=== PATIENT | female | born 1995 | race Two or more races ===

== ENCOUNTER 2020-05-05 18:33 | Emergency (ER) | payer MEDICAID ==
[~2020-05-05] VITALS: Ht 149.9 cm; Wt 68.9 kg
--- NOTE | 2020-05-05 18:49 | NUR ---
ED Nurse Note: Pt walked into ED for feeling of dehydration for 1 week. Pt thinks she has dry mouth and has c/o fever but current temp of 98.2F oral. Pt is alert and orientedx4, ambulatory. Pt has been seen by BRYAN.
[2020-05-05 18:53] VITALS: BP 138/87
--- NOTE | 2020-05-05 19:00 | Emergency Room Report ---
History of Present Illness General Chief Complaint: General Complaint Source: Patient Present Illness HPI Patient is a 24-year-old female who presents after increased generalized feeling of being more thirsty. Reports having prior history of type 2 diabetes for which he takes insulin. Denies any vomiting or diarrhea. Reports having decreased urine output. States that she had previously had no other abnormal test. Denies any abdominal pain. Reports having previously been followed by [facility]. 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 Patient History Past Medical History: see triage record, DM Last Menstrual Period: 04/14/20 Now: No Reviewed Nursing Documentation: PMH: Agreed; PSxH: Agreed Nursing Documentation-PMH Hx Diabetes: Yes Review of Systems All Other Systems: negative except mentioned in HPI Physical Exam Vital Signs Date Time Temp Pulse Resp B/P (MAP) Pulse Ox O2 Delivery O2 Flow Rate FiO2 05/05/20 18:43 98.2 118 17 143/90 (107) 97 Room Air 05/05/20 18:53 99 Sp02 EP Interpretation: reviewed, normal General Appearance: normal inspection, well appearing, no apparent distress, alert, GCS 15 Head: atraumatic ENT: normal ENT inspection, hearing grossly normal, normal voice Neck: normal inspection, full range of motion, supple, no bony tend Respiratory: normal inspection, lungs clear, normal breath sounds, no respiratory distress, no retraction, no wheezing Cardiovascular #1: regular rate, rhythm, no edema Gastrointestinal: normal inspection, normal bowel sounds, non tender, soft, no guarding, no hernia Genitourinary: no CVA tenderness Musculoskeletal: normal inspection, back normal, normal range of motion Neurologic: alert, motor strength/tone normal, locum tenens III-XII nml as tested, oriented x3, responsive, speech normal, normal inspection Psychiatric: normal inspection, judgement/insight normal, mood/affect normal Medical Decision Making ER Course Patient presented for reported generalized weakness and decreased urine output. differential diagnosis include was not limited to acute renal failure, urinary tract infection, coronavirus infection among others.. Patient was noted to have history of type 2 diabetes. Because of complexity of patient's case laboratory tests and imaging studies were ordered. Does not appear to be in any acute distress. EKG Diagnostic Results Rate: normal Rhythm: NSR ST Segments: no acute changes Last Vital Signs Date Time Temp Pulse Resp B/P (MAP) Pulse Ox O2 Delivery O2 Flow Rate FiO2 05/05/20 18:53 98.2 102 16 138/87 99 Room Air 05/05/20 18:53 99 Nitin Lofton MD May 05, 2020 19:00
--- NOTE | 2020-05-05 19:04 | NUR ---
ED Nurse Note: Blood and urine sent to lab.
[2020-05-05 19:13] LABS: APPEARANCE,URINE SLIGHTLY CLOUDY; BILIRUBIN, URINE NEGATIVE (NEGATIVE); COLOR,URINE PALE YELLOW; GLUCOSE, URINE (UA) NEGATIVE (NEGATIVE); KETONES,URINE NEGATIVE (NEGATIVE); LEUKOCYTE ESTERASE ,URINE NEGATIVE (NEGATIVE); NITRITE,URINE NEGATIVE (NEGATIVE); PH,URINE 7 (4.5-8.0); PROTEIN,URINE NEGATIVE (NEGATIVE); UROBILINOGEN,URINE NORMAL MG/DL (0.0-1.0)
[2020-05-05 19:16] LABS: BASOPHILS % (AUTO) 0.7 % (0.0-2.0); EOSINOPHILS % (AUTO) 0.7 % (0.0-3.0); HEMATOCRIT 39.3 % (37.0-47.0); HEMOGLOBIN 12.6 G/DL (12.0-16.0); LYMPHOCYTES % (AUTO) 33.5 % (20.0-45.0); MEAN CORPUSCULAR VOLUME 86 FL (80-99); MONOCYTES % (AUTO) 5.6 % (1.0-10.0); NEUTROPHILS % (AUTO) 59.4 % (45.0-75.0); PLATELET COUNT 423 K/UL (150-450); RED BLOOD COUNT 4.55 M/UL (4.20-5.40); RED CELL DISTRIBUTION WIDTH 14.1 % (11.6-14.8); WHITE BLOOD COUNT 10.9 K/UL (4.8-10.8)
--- NOTE | 2020-05-05 19:18 | NUR ---
ED Nurse Note: Patient resting comfortably awaiting discharge.
--- NOTE | 2020-05-05 19:19 | Diagnostic Imaging Report ---
EXAM: XR Chest, 1 View CLINICAL HISTORY: PAIN TECHNIQUE: Frontal view of the chest. COMPARISON: No previous studies. FINDINGS: Lungs: The lungs are well aerated. Pleural space: No pleural effusions. No pneumothorax. Heart: Cardiomediastinal silhouette is unremarkable. Mediastinum: See above. Bones/joints: The ribs are unremarkable. Dextroscoliosis of the thoracolumbar spine. IMPRESSION: No active disease.
[2020-05-05 19:27] LABS: ANION GAP 8 mmol/L (5-15); BLOOD UREA NITROGEN 2 mg/dL (7-18); CALCIUM 9.5 MG/DL (8.5-10.1); CARBON DIOXIDE 30 MMOL/L (21-32); CHLORIDE 99 MMOL/L (98-107); CREATININE 0.6 MG/DL (0.55-1.30); POTASSIUM 3.3 MMOL/L (3.5-5.1); SODIUM 137 MMOL/L (136-145)
[2020-05-05 19:31] LABS: ALANINE AMINOTRANSFERASE 52 U/L (12-78); ALBUMIN 4.7 G/DL (3.4-5.0); ALBUMIN/GLOBULIN RATIO 1.5 (1.0-2.7); ALKALINE PHOSPHATASE 83 U/L (46-116); ASPARTATE AMINO TRANSFERASE 35 U/L (15-37); BILIRUBIN,TOTAL 0.3 MG/DL (0.2-1.0)
[2020-05-05] MEDS ORDERED: ACETAMINOPHEN500 M3 ORAL (20:15)
[2020-05-05 20:30] VITALS: BP 138/87
--- NOTE | 2020-05-05 20:30 | NUR ---
ER DISCHARGE NOTE: Patient is cleared to be discharged per ERMD, pt is aox4, on room air, with stable vital signs. pt was given dc and prescription instructions, pt was able to verbalize understanding, pt id band and iv site removed without complications. pt is able to ambulate with steady gait. pt took all belongings.
--- NOTE | 2020-05-06 14:02 | Cardiology Report ---
APPROVED REPORT EKG Measurement Heart [id number] <Conclusion> Sinus tachycardia Possible Left atrial enlargement RSR' or QR pattern in V1 suggests right ventricular conduction delay Nonspecific T wave abnormality Abnormal ECG
== END 2020-05-05 20:30 | disposition home or self-care (01) ==
LOC: EMR 19:28
DX: R63.1 Polydipsia (principal); E11.9 Type 2 diabetes mellitus without complications; Z79.4 Long term (current) use of insulin
CPT/HCPCS: 36415; 71045; 80053; 80307; 81003; 81025; 84484; 85025; 93005; G0480; Z7502; 99284; J8499